=== PATIENT | male | born 1980 | race Asian ===

== ENCOUNTER 2023-12-20 14:38 | Outpatient (CLI) | payer OTHER ==
--- NOTE | 2023-12-20 15:49 | Sleep Patient Instructions ---
Sleep Center Visit Summary - Patient Visit Information Reason for Visit: Initial consult for evaluation of sleep disordered breathing and other sleep issues. - Patient Instructions Instructions Attached: Sleep Study Additional Instructions: You will be completing a sleep study, either an in-lab polysomnography (PSG) or home sleep study (HST). You will follow-up in the sleep care office after the sleep study is completed to hear the results and talk about therapy, if needed. You will be called by our office staff to schedule this appointment, but you may contact us with any questions. - Clinic Information Contact: [facility] [address] [place] [address] [email or web address] T: [phone]
[2023-12-20 15:53] VITALS: BP 129/81; O2SAT 98
--- NOTE | 2023-12-20 15:53 | SLEEP CARE CONSULTATION ---
Information from patient questionnaire entered by Thalia Joyce. I have reviewed and concur with the information entered by Thalia Joyce. This document represents the service I personally performed and the decisions made by me, Dahlia Ceron ARNP. History of Present Illness Service Date and Time: 12/20/2023 1438 Reason for Visit: New patient Accompanied by: Partner (Cody) Chief Complaint: reports: Insomnia, Unrefreshed sleep, Snoring, Excessive daytime sleepiness, Observed pauses in breathing, Frequent awakenings at night Date of Onset: 2016 Usual bedtime: 10PM Time it takes to fall asleep: 10MIN Snores at night: Yes Observed to quit breathing while asleep: Yes Sleeps alone due to snoring: No Number of times waking at night: 2-3 Reasons for waking at night: reports: Choking, Snoring, Gasping for air (girlfriend is hearing this), Other (NOISE AND UNKNOWN) Toss, Turn, or Twitch while sleeping: Yes Recalls having dreams: Yes Usually gets out of bed at: 655AM Feels refreshed in the morning: No Morning headache: No Sleepy or fatigued during the day: Yes Ever fallen asleep while driving: No Takes day naps: Yes (unintentional naps mostly for 15-45 minutes, 1-2 times a week) Dreams during day naps: No Prior sleep studies: No Additional HPI information: I had the pleasure of seeing JOSE WOOTEN today regarding the possibility of him having a sleep disorder. His current complaints are insomnia, unrefreshed sleep, snoring, excessive daytime sleepiness, observed pauses in breathing and frequent night awakenings. He feels like he is sleeping bad. He gets really tired during the day and wants to nap in afternoon. His girlfriend says she has noticed with he has a night where he is having lot of pauses in breathing that the next day he is grumpier and sykes. She says he snores loudly when sleeping on the couch or on his back. He will stop breathing more when on his back. - Parasomnia Symptoms Ever been unable to move upon waking from sleep: Yes (1 every couple months) Walks in sleep: No Talks in sleep: Yes Ever acted out dreams in sleep: Yes (moving arms and legs) Ever felt weak in the knees when startled or emotional: No Bothered by creepy, crawly, restless sensations in legs: No Problems with memory or concentration: No Subjective Initial [place] Sleepiness Scale score: 12 (12/19/23) Past Medical History Past Medical History: reports: Hypertension, Other (occasional heartburn) Social History The patient's occupation is a AM. Patient is Single and lives in . Have you smoked in the past 12 months: No Alcohol use: Yes Alcohol amount and frequency: 1 GLASS 1XMONTHLY Caffeine use: Yes Caffeine amount and frequency: 1 CUP 1XWEEK Family History Family history of sleep disordered breathing: Yes Family Hx Sleep Apnea: Mother: Snoring, Father: Snoring, Sleep apnea - Untreated, Sibling: Snoring Allergies and Home Medications Known drug allergies: No Drug allergies reviewed: Yes Home medication list reviewed: Yes (as listed) Allergy and home medication list: Allergies No Known Drug Allergies Allergy (Verified 12/20/23 15:08) Home Medications Magnesium See Rx Instructions .ROUTE .COMPLEX 12/20/23 [History] Magnesium Carb,Citrate,Oxide [Magnesium Complex] See Rx Instructions .ROUTE .COMPLEX 12/20/23 [History] Multivitamin See Rx Instructions .ROUTE .COMPLEX 12/20/23 [History] [place]-3/Dha/Epa/Fish Oil [Fish Oil 1,000 mg Softgel] See Rx Instructions .ROUTE .COMPLEX 12/20/23 [History] Review of Systems Weight gain over past 5 years: 10 Weight loss over past 5 years: 10 Cardiovascular: reports: high blood pressure, palpitations Respiratory: reports: chronic cough Gastrointestinal: reports: heartburn Neurological: reports: head trauma. denies: headaches Psychiatric: reports: mood disorder. denies: anxiety, depression Ear/Nose/Throat: reports: nose bleeds, wisdom teeth removed. denies: tonsillectomy Endocrine: reports: sluggishness, too hot or cold Musculoskeletal: reports: neck pain, back pain, muscle pain or cramping Immunologic: reports: sneezing, rash, itching, allergies to food or environment Physical Exam Vital signs obtained and entered by: THALIA Brunner MA Blood Pressure: 129/81 (LEFT ARM) Cuff size: regular Heart Rate: 76 O2 Saturation: 98 Height: 6 ft 1 in Weight: 182 lb 9.6 oz Body Mass Index: 24.0 BMI Classification: Normal Neck circumference: 14.75 Mouth and throat: narrow oropharynx Soft palate: long Hard palate: normal Uvula: normal Uvula visualization: 25% Mallampati Class III Tonsils: small Neck: normal w/o lymphadenopathy or thyromegaly Heart: regular rate and rhythm Lungs: clear bilaterally Impression and Plan 1. Suspected Obstructive Sleep Apnea-Hypopnea Syndrome, as suggested by a history of loud and irregular snoring, observed cessation of breath while asleep, gasping or choking in sleep, frequent awakening during the night, unrefreshed sleep, and excessive daytime sleepiness. Narrow oropharynx and obesity are common predisposing factors for obstructive sleep apnea-hypopnea syndrome. I recommend proceeding to polysomnography to confirm the diagnosis and to assess severity. If the patient has significant sleep disordered breathing, a manual CPAP titration study will also be performed to find the optimal treatment pressure. I informed the patient of what the sleep studies involve and after some discussion, obtained agreement to proceed. The pathophysiology of obstructive sleep apnea-hypopnea syndrome was discussed with the patient and health risks of cardiovascular and cerebrovascular disease if not treated. Risks of drowsy driving discussed in detail and patient advised to avoid long distance driving and to slab puller at the first sign of drowsiness. Patient agreed to plan. * Schedule polysomnography +- manual CPAP titration study and return in 1-2 weeks after the study to discuss result and initiate therapy. * Avoid long distance driving or driving when feeling sleepy. * Avoid alcohol, sedative and muscle relaxant around bedtime. * Review instructions provided by trained office staff on how to prepare for the sleep study. * Return for follow-up after sleep study completed. Follow up with Sleep Care in: other (after sleep study completed to go over results) Plan: PSG Visit Type: In Office Time Spent with Patient (minutes): 34 Provider Statement: I spent 100% of the Face to Face Visit with the patient with greater than 50% spent counseling the patient and coordination of care.
== END 2023-12-20 14:39 | disposition home or self-care (01) ==
LOC: SC 14:38
PROVIDERS: ATTEND Nurse Practitioner Family
DX: R06.83 Snoring (principal); G47.8 Other sleep disorders; R06.81 Apnea, not elsewhere classified; G47.10 Hypersomnia, unspecified; I10 Essential (primary) hypertension
CPT/HCPCS: 99203; 99212

== ENCOUNTER 2024-01-24 20:53 | Outpatient (CLI) | payer OTHER | END 2024-01-24 20:54 | disposition home or self-care (01) | LOC: SC 20:53 | PROVIDERS: ATTEND Nurse Practitioner Family | DX: R06.83 Snoring (principal); R06.81 Apnea, not elsewhere classified; G47.8 Other sleep disorders; G47.10 Hypersomnia, unspecified | CPT/HCPCS: 95810 ==

== ENCOUNTER 2024-02-15 14:39 | Outpatient (CLI) | payer OTHER ==
--- NOTE | 2024-02-15 15:15 | Sleep Patient Instructions ---
Sleep Center Visit Summary - Patient Visit Information Reason for Visit: Sleep study follow-up - Patient Instructions Additional Instructions: Your sleep study today was negative for significant sleep disordered breathing. However, you did have elevated respiratory episodes when sleeping on your back. You should avoid sleeping on your back to control these respiratory episodes. You were found to have episodes of snoring. There are different ways to control snoring including weight loss, oral devices made by a dentist or surgical options through ENT specialist. You should not use oral devices that do not fit properly because they can affect your bite. You should also check insurance coverage of oral devices for snoring because they may not be cover well. You may obtain a referral to an ENT specialist through your primary provider. Follow-up as needed. - Clinic Information Contact: [facility] [address] [place] [address] [email or web address] T: [phone]
--- NOTE | 2024-02-15 15:17 | SLEEP CARE CONSULTATION ---
Information from patient questionnaire entered by Thalia Joyce. I have reviewed and concur with the information entered by Thalia Joyce. This document represents the service I personally performed and the decisions made by , Dahlia Ceron ARNP. History of Present Illness Service Date and Time: 02/15/2024 1439 Accompanied by: Partner Initial [place] Sleepiness Scale score: 12 (12/19/23) Current [place] Sleepiness Scale score: 16 Additional HPI information: JOSE WOOTEN returns for follow up and results of the recently performed polysomnography. The patient was informed of the following findings: No significant sleep disordered breathing with an average AHI of 4.6 and [place] oxygen saturation of 83%. I explained the pathophysiology behind obstructive sleep apnea. Patient does not have sleep apnea and was advised how weight gain could increase the risk of developing sleep apnea in the future. Patient does not have significant sleep disordered breathing but has elevated AHI in supine position so advised positional therapy. Methods to achieve positional management therapy were discussed; such as, positioning with pillows, wearing a T-shirt with tennis balls sewn into the back or commercially available products. Patient has light to loud snoring. Snoring can also be treated with an oral appliance from a dentist. Advised to check insurance coverage. In addition, an ENT evaluation can be do to see if other treatment is indicated. Patient counseled not drink alcohol less than 4 hours before bedtime as it can increase snoring and apnea. Patient was cautioned about risks of drowsy driving until sleepiness symptoms resolve. Patient denies drowsy driving. Sleep Study - Results Type of Sleep Study: Polysomnography (COMPLETED 01/24/24) Prior sleep studies: No Polysomnography/Home Sleep Study results: IMPRESSION: The quality of the study is good. The patient had slightly reduced sleep efficiency due to two prolonged awakenings in the first half of the night. The sleep architecture was relatively normal considering the first-night effect. Respiratory monitoring showed no significant sleep disordered breathing (AHI = 4.6) or hypoxia ([place] oxygen saturation of 83%). The few respiratory events occurred almost exclusively during supine sleep (supine AHI = 14.3; non-supine = 0.26). Snore was light to loud in intensity. There was no significant periodic leg movement of sleep. Cardiac rhythm was normal sinus rhythm without significant arrhythmia. No abnormal behavior (parasomnia) observed during the night. Allergies and Home Medications Known drug allergies: No Drug allergies reviewed: Yes Home medication list reviewed: Yes (no changes) Allergy and home medication list: Allergies No Known Drug Allergies Allergy (Verified 02/13/24 16:15) Review of Systems Review of systems same as previous: Yes (no changes) Physical Exam Vital signs obtained and entered by: DAHLIA KEMP Blood Pressure: 114/79 Cuff size: regular (left arm) Heart Rate: 80 O2 Saturation: 98 Height: 6 ft 1 in Weight: 179 lb 12.8 oz Body Mass Index: 23.7 BMI Classification: Normal Impression and Plan 1. Snoring but no significant sleep disordered breathing. However, his supine AHI was elevated at 14.3 and he should avoid sleeping supine. Patient advised that often weight loss will reduce snoring as well as apnea risk. An oral appliance can also be used for snoring. This would require a dental consultation. Patient cautioned not to use other online appliances as can cause bite issues. Patient is advised to check if insurance will cover. An ENT consult can also be helpful to determine if any other treatment is an option. * Avoid supine sleep * Avoid alcohol consumption near bedtime * Return as needed for follow up. Counseling Topics: Sleeping position, Weight control Follow up with Sleep Care in: as needed Visit Type: In Office Time Spent with Patient (minutes): 14 Provider Statement: I spent 100% of the Face to Face Visit with the patient with greater than 50% spent counseling the patient and coordination of care.
[2024-02-15 15:19] VITALS: BP 114/79; O2SAT 98
== END 2024-02-15 14:40 | disposition home or self-care (01) ==
LOC: SC 14:39
PROVIDERS: ATTEND Nurse Practitioner Family
DX: R06.83 Snoring (principal)
CPT/HCPCS: 99212